=== PATIENT | male | born 1950 | race Caucasian/White ===

== ENCOUNTER 2023-05-17 08:14 | Day surgery (SDC) | payer MEDICARE ==
[2023-05-17] MEDS ORDERED: Lactated Ringers 1,000 ML IV SCH (09:00)
[2023-05-17] MEDS ORDERED: Midazolam 1 MG/ML 2 ML SDV ONE (09:04)
[2023-05-17] MEDS ORDERED: Propofol 200 MG/20 ML SDV ONE (10:00)
[2023-05-17] MEDS ORDERED: fentaNYL 50 MCG/ML SDV ONE (10:00)
== END 2023-05-17 11:30 | disposition home or self-care (01) ==
LOC: JP.SDS 08:14
PROVIDERS: ATTEND Student in an Organized Health Care Education/Training Program
DX: Z12.11 Encounter for screening for malignant neoplasm of colon (principal); D12.4 Benign neoplasm of descending colon; K62.1 Rectal polyp; K57.30 Diverticulosis of large intestine without perforation or abscess without bleeding; I10 Essential (primary) hypertension; F41.9 Anxiety disorder, unspecified; E11.9 Type 2 diabetes mellitus without complications
CPT/HCPCS: 45380; 88305; J2250; J2704; J3010; J7120